=== PATIENT | female | born 1950 | race Caucasian/White ===

== ENCOUNTER 2019-05-23 17:44 | Emergency (ER) | payer OTHER, SELFPAY ==
--- NOTE | ~2019-05-23 | XR_ITS ---
[XR ribs LT 2V ] INDICATION: Left rib pain TECHNIQUE: Frontal projection of the upper left ribs, frontal projection of the lower left ribs, obli que projection of all the left ribs, frontal inspiratory chest x-ray for interpretation. FINDINGS: There are acute nondisplaced left fifth and sixth rib fractures. Left basilar atelectasis. No pneumothorax identified. Heart size normal. IMPRESSION: 1: Acute nondisplaced left fifth and sixth rib fractures. Reviewed, dictated and finalized at location A. STRINGER ASSEMBLER
--- NOTE | 2019-05-23 17:49 | PC.NURSE ---
PT CALLED BACK FOR EKG PER CUTTER AND PASTER PRESS CLIPPINGS, PT REFUSING EKG STATES SHE WAS DIAGNOSED WITH A PULLED MUSCLE.
--- NOTE | 2019-05-23 19:17 | PC.NURSE ---
called pt into triage bay, no response. another pt state i think thats the pt that just walked out. will try again in a few minutes.
[2019-05-23 19:33] VITALS: BP 145/118; PULSE 82; RESP 18; TEMP 36.9; O2SAT 97
--- NOTE | 2019-05-23 20:34 | ED.CHESTPAIN ---
HPI - Chest Pain General Chief Complaint: Chest Pain Stated Complaint: LEFT SIDE/CHEST PAIN Time Seen by Provider: 05/23/19 20:32 Source: patient and RN notes reviewed Mode of arrival: other Limitations: no limitations History of Present Illness HPI narrative: Pt is a 68 y/o female who presents to the ED with c/o 7/10 left sided rib pain that began a month ago, but has worsened today after reaching into her grandson's carseat. Pt was dx with RSV and pneumonia about a month ago. Pt believes that she pulled a muscle d/t her cough. Pt was seen in an ED on 04/29/19 for the same sx and was given Cyclobenzaprine 4 mg. She?s taken 3-4 pills since and has had no relief. Her sx are aggravated with movement and coughing. Pt notes that her sx are alleviated whenever she takes Vicodin. Pt reports near syncope d/t her pain, but denies a fever. complaint: other (rib pain) Onset (ago): month(s) (1) Timing of current episode: constant Pain location: other (left sided ribs) Severity: moderate Pain scale (0-10): 7 Relieving factors: medication-other (Vicodin) Exacerbating factors: movement and other (coughing) Context: recent illness Associated symptoms: syncope (near, d/t her pain) and cough Related Data Allergies Allergy/AdvReac Type Severity Reaction Status Date / Time No Known Allergies Allergy Verified 11/05/15 23:30 Review of Systems Review of Systems: All systems reviewed & are unremarkable except as noted in HPI and below Constitutional: Constitutional: Denies fever(s) Respiratory: Respiratory: Reports cough Musculoskeletal: Musculoskeletal: Reports other (left sided rib pain) Neurologic: Reports syncope (near, d/t her pain) PMFSH Past Medical History Medical History (Updated 05/24/19 @ 03:50 by Remington Ching MD) Depression Hyperthyroidism Pneumonia RSV (respiratory syncytial virus infection) Surgical History Surgical History (Updated 05/23/19 @ 20:36 by Waleska Serrano) Surgical history unknown Social History Social History (Updated 05/23/19 @ 20:36 by Waleska Serrano) Smoking status: Unknown if ever smoked Exam Const: General: healthy appearing and no acute distress Nutritional Appearance: well nourished HENMT: Mouth: Yes lip normal and Yes moist mucous membranes Eyes: Conjunctivae: conjunctivae normal Pupils: Equal, round and reactive pupils present Chest: Chest palpation & inspection: tenderness rib (left sided) Resp: Effort & Inspection: normal respiratory effort Back/Spine/Pelvis: Back: other (Full ROM) Skin: General skin exam: normal color, dry skin and other (warm) Neuro: General: patient oriented x3 and other (alert) Speech: normal speech Extrem: General: full ROM Psych: Mental Status: mental status grossly normal Affect: normal affect Course Vital Signs Vital signs: Vital Signs Temperature 36.9 C 05/23/19 19:33 Pulse Rate 82 05/23/19 19:33 Respiratory Rate 18 05/23/19 19:33 Blood Pressure 145/118 H 05/23/19 19:33 Pulse Oximetry 97 05/23/19 19:33 Temperature 36.7 C 05/23/19 21:19 Pulse Rate 80 05/23/19 21:19 Respiratory Rate 18 05/23/19 21:19 Blood Pressure 132/80 05/23/19 21:19 Pulse Oximetry 98 05/23/19 21:19 MDM - Chest Pain Differential Diagnosis Differential diagnosis: Likely fracture of rib Medical Records Data Attestation: I reviewed the patient's medical records. Imaging Data Attestation: I personally reviewed and interpreted this imaging study as follows: Radiologist's impression: ITS Impressions Ribs X-Ray 05/23/19 20:09 IMPRESSION: 1: Acute nondisplaced left fifth and sixth rib fractures. Discharge Plan Discharge Clinical Impression: Fracture of rib Patient Disposition: Home, Self-Care Condition: Stable Instructions: Rib Fracture (ED) Prescriptions: New hydrocodone-acetaminophen [[place]] 5-325 mg tablet 1 tablet PO Q6H PRN (Reason: pain) Qty: 14 RF: 0 Follow-up/
[2019-05-23 21:19] VITALS: BP 132/80; PULSE 80; RESP 18; TEMP 36.7; O2SAT 98
== END 2019-05-23 21:19 | disposition home or self-care (01) ==
PROVIDERS: Emergency Provider Emergency Medicine; PCP Emergency Medicine
DX: S22.42XA Multiple fractures of ribs, left side, initial encounter for closed fracture (principal); E05.90 Thyrotoxicosis, unspecified without thyrotoxic crisis or storm; X58.XXXA Exposure to other specified factors, initial encounter
CPT/HCPCS: 71100; 99283; A9270

== ENCOUNTER 2020-03-11 06:52 | Outpatient (NON) | payer OTHER, SELFPAY ==
[2020-03-11 21:00] LABS: SARS-CoV-2 RNA PCR Negative
== END 2020-03-11 06:53 ==
PROVIDERS: PCP Emergency Medicine; Visit Provider Internal Medicine
DX: J02.9 Acute pharyngitis, unspecified (principal); R09.81 Nasal congestion; Z20.828 Contact with and (suspected) exposure to other viral communicable diseases
CPT/HCPCS: 87635; C9803; U0003

== ENCOUNTER → 2021-07-13 10:21 | Outpatient (CLI) | payer OTHER, SELFPAY ==
--- NOTE | ~2021-07-13 | DEXA_ITS ---
Bone Density Report Name: KE TAMAYO Age: 70 Sex: Female Ethnicity: White Date of : 1950 Indication: osteopenia; height loss; postmenopausal Referring Provider: Marvin, Deepthi Bishop Study: Bone densitometry was performed. Exam Date: July 13, 2021 Accession number: [id number] Bone Density: Region BMD T-score Z-score Classification AP Spine (L1-L4) 0.998 -0.4 1.7 Normal Femoral Neck (Left) 0.695 -1.4 0.4 Osteopenia Total Hip (Left) 0.856 -0.7 0.8 Normal Femoral Neck (Right) 0.650 -1.8 0.0 Osteopenia Total Hip (Right) 0.839 -0.8 0.7 Normal Total Hip Mean 0.848 -0.8 0.8 Normal World Health Organization criteria for BMD impression classify patients as: Normal (T-score at or above -1.0), Osteopenia (T-score between -1.0 and -2.5), or Osteoporosis (T-score at or below -2.5). 10-year Fracture Risk(1): Major Osteoporotic Fracture 10% Hip Fracture 1.6% Reported Risk Factors: [place] (), Neck BMD=0.650, BMI=32.3 (1) FRAX(R) Version 3.08. Fracture probability calculated for an untreated patient. Fracture probability may be lower if the patient has received treatment. Previous Exams: Region Exam Age BMD T-score BMD Change BMD Change Date g/cm2 vs Baseline vs Previous AP Spine(L1-L4) 07/13/2021 70 0.998 -0.4 0.013 0.033* 02/28/2018 67 0.965 -0.7 -0.019 0.028* 02/10/2016 65 0.937 -1.0 -0.047* -0.047* 11/28/2010 59 0.984 -0.6 Total Hip(Left) 07/13/2021 70 0.856 -0.7 0.022 0.056* 02/28/2018 67 0.800 -1.2 -0.034* -0.006 02/10/2016 65 0.806 -1.1 -0.029* -0.029* 11/28/2010 59 0.834 -0.9 Total Hip(Right) 07/13/2021 70 0.839 -0.8 -0.014 -0.010 02/28/2018 67 0.849 -0.8 -0.004 0.056* 02/10/2016 65 0.793 -1.2 -0.060* -0.060* 11/28/2010 59 0.853 -0.7 *Denotes significance at 95% confidence level, LSC for AP Spine = 0.022 g/cm2, LSC for Total Hip = 0.027 g/cm2 Clinical Information Provided by Patient: Has used the following medications: Calcium Patient maximum height was 65.5 Menopause Age: 54 No regular weight bearing exercise Onset of menses at age 13 Number of children 1 Impression: The patient has low bone mass, based on the Right Femoral Neck T-score. The patient has an estimated ten-year risk of hip fracture of
== END ==
PROVIDERS: Visit Provider Internal Medicine
DX: M85.80 Other specified disorders of bone density and structure, unspecified site (principal); N95.9 Unspecified menopausal and perimenopausal disorder; M85.852 Other specified disorders of bone density and structure, left thigh; M85.851 Other specified disorders of bone density and structure, right thigh
CPT/HCPCS: 77080

== ENCOUNTER 2024-06-27 10:24 | Outpatient (CLI) | payer MEDICARE, SELFPAY ==
--- NOTE | ~2024-06-27 | DEXA_ITS ---
Bone Density Report Name: KE TAMAYO Age: 73 Sex: Female Ethnicity: White Date of : 1950 Indication: postmenopausal; screening for osteoporosis; parental hip fracture; height loss; Referring Provider: LAZARO, TAURUS Bishop Study: Bone densitometry was performed. Exam Date: June 27, 2024 Accession number: [id number] Bone Density: Region BMD T-score Z-score Classification AP Spine(L1-L4) 1.011 -0.3 2.0 Normal Femoral Neck (Left) 0.637 -1.9 0.1 Osteopenia Total Hip (Left) 0.828 -0.9 0.8 Normal Femoral Neck (Right) 0.692 -1.4 0.6 Osteopenia Total Hip (Right) 0.846 -0.8 0.9 Normal Total Hip Mean 0.837 -0.9 0.9 Normal World Health Organization criteria for BMD impression classify patients as: Normal (T-score at or above -1.0), Osteopenia (T-score between -1.0 and -2.5), or Osteoporosis (T-score at or below -2.5). 10-year Fracture Risk(1): Major Osteoporotic Fracture 19% Hip Fracture 8.1% Reported Risk Factors: [place] (), Neck BMD=0.637, BMI=31.9, parental fracture (1) FRAX(R) Version 3.08. Fracture probability calculated for an untreated patient. Fracture probability may be lower if the patient has received treatment. Clinical Information Provided by Patient: Parent has had a hip fracture Has used the following medications: Vitamin D, Calcium Has the following medical conditions: HYPOTHYROIDISM Patient maximum height was 66 Menopause Age: 55 No regular weight bearing exercise Onset of menses at age 13 Number of children 1 Impression: The patient has low bone mass, based on the Left Femoral Neck T-score. The patient has an estimated ten-year risk of hip fracture of 8.1% and an estimated ten-year risk of major fracture of 19%, based on the WHO FRAX algorithm. The patient has risk factors, including: parental hip fracture. Discussion: BONE DENSITY IS LOW AT ONE OR MORE SKELETAL SITES. THE PATIENT'S BMD AND CLINICAL RISK FACTORS CONTRIBUTE TO THIS PATIENT'S INCREASED RISK OF FRACTURE. This patient's lowest T-score is low at one or more skeletal sites. It meets the World Health Organization's (WHO) criteria for ?low bone mass? (T-score between -1.0 and -2.5). The patient's 10-year risk of hip fracture as calculated by FRAX exceeds the threshold where pharmacological therapy is recommended by the National Osteoporosis Foundation (NOF). However, all treatment decisions require clinical judgment and consideration of individual patient factors, including patient preferences, comorbidities, previous drug use, risk factors not captured in the FRAX model (e.g., frailty, falls, vitamin D deficiency, increased bone turnover, interval significant decline in bone density) and possible under or overestimation of fracture risk by FRAX. The patient should follow a healthful lifestyle (good nutrition with adequate calcium and vitamin D, and appropriate weight-bearing exercise). Follow-Up: Consider a repeat BMD and Vertebral Fracture Assessment (VFA) exam in 2 years or sooner if medically necessary, to reassess this patient's status. Reported by: ALISSON on 06/27/2024 11:03:00 AM. Reviewed, dictated and finalized at location AThony PADILLA
--- OUTSIDE RECORDS SUMMARY | 2024-06-27 11:19 | XMS_ITS | Clinical Summary ---
Author Organization [facility] Address [address] [place] [id number] Care Team Providers Care Public Relations Manager Name Role Phone Unavailable Primary Care Provider Unavailabl e Allergies Active Allergy Reactions Criticality Noted Date Comments Acetaminophen-Codeine Unknown 02/12/2018 Codeine Swelling,Dizziness,Vomiting 03/12/20 18 Morphine Unknown 02/15/2018 Medications Cholecalciferol (VITAMIN D3) 2000 units Tab Activ e Calcium Carbonate-Vitam in D (CALCIUM 500 + D OR) Take 1 tablet by mouth. 400 ui Vitamin D Active cyclobenzaprine 5 MG tablet 04/20/2019 Active LEVOTHYROXINE 100 MCG tabletIndicatio ns:Hypothyroidi sm TAKE ONE TABLET BY MOUTH EVERY MORNING 90 tablet 1 06/13/2019 Active sertraline 100 MG tabletIndicatio ns:Recurrent major depressive disorder, in partial remission (CMS/HCC) Take 1 tablet (100 mg total) by mouth daily. 30 tablet 04/22/2020 Active Active Problems Problem Noted Date Diagnosed Date Pain and swelling of right ankle 05/02/2019 Cough 05/02/2019 Abdominal cramps 05/02/2019 Influenza vaccination declined by patient 2019 Non compliance with medical treatment 05/02/2019 Sore throat 04/09/2019 Codeine adverse reaction 02/15/2018 Menopause present 02/11/2018 OCD (obsessive compulsive disorder) 02/11/2018 Osteoarthritis of right knee 06/06/2017 Knee pain, right 06/05/2017 Obesity (BMI 30.0-34.9) 01/30/2017 Depression 01/13/2016 Hypothyroidism 01/13/2016 Low vitamin D level 01/13/2016 Memory deficit 01/13/2016 Osteopenia 01/13/2016 Resolved Problems Problem Noted Date Diagnosed Date Resolved Date Immunization due 06/05/2017 01/02/2020 Encounter for preventive health examination 01/04/2016 01/02/2020 Family History Medical History Relation Comments Heart Disease Father Cancer Mother pancreatic Relation Status Comments Father Mother (Age 67) Social History Tobacco Use Types Packs/Day Years Used Date Smoking Tobacco: Never Smokeless Tobacco: Never Alcohol Use Standard Drinks/Week Comments No 0 (1 standard drink = 0.6 oz pur e alcohol) AUDIT-C Answer Date Recorded Frequency of Alcohol Consumption Never 04/09/2019 Average Number of Drinks Not on file 019 Frequency of Binge Drinking Not on file 03/23 PHQ-2 Answer Date Recorded PHQ-2 Score 6 04/28/2019 Comments No Sex and Gender Information Value Date Recorded Sex Assigned at Not on file Legal Sex Female 8:11 PM CDT Gender Identity Not on file Sexual Orientation Not on file Last Filed Vital Signs Vital Sign Reading Time Taken Comments Blood Pressure 141/78 04/28/2019 8:52 AM LEATHER SEASONER Pulse 75 04/28/2019 8:52 AM LEATHER SEASONER Temperature 36.3 C (97.3 F) 04/18/2019 8:50 AM LEATHER SEASONER Respiratory Rate 16 04/28/2019 8:52 AM LEATHER SEASONER Oxygen Saturation 97% 04/28/2019 8:52 AM LEATHER SEASONER Inhaled Oxygen Concentration - - Weight 82.6 kg (182 lb) 04/28/2019 8:52 AM LEATHER SEASONER Height 163.2 cm (5' 4.25 ) 04/28/2019 8:52 AM CS T Body Mass Index 31 04/28/2019 8:52 AM LEATHER SEASONER Plan of Treatment Health Maintenance Due Date Last Done Comments Colorectal Cancer Screening Colonoscopy (10 Years) 1950 Hepatitis C 1968 DTaP, Tdap and Td Vaccines ( 1 - Tdap) 1969 Mammogram Screening 1990 Zoster Vaccines (1 of 2) 2000 Annual Medicare Wellness Visit 01/01/2016 Pneumococcal Vaccine: 65+ Ye ars (1 of 1 - PCV) 01/01/2016 Dexa Scan (General) 02/28/2021 02/28/2018 COVID-19 Vaccine ( - 2023-2 5 season) 2023 Influenza Adult (#1) 2024 RSV Immunization or 60+ Years (1 - 1-dose 75+ series) 2025 Meningococcal B Vaccine Aged Out No l onger eligible based on patient's age to complete this topic Meningococcal Vaccine Aged Out No alisa karie eligible based on patient's age to complete this topic RSV Immunizations Under 20 Months Aged Out No longer eligible based on patient's age to complete this topic Procedures Procedure Name Priority Date/Time Associated Diagnosis Comments BONE DENSITY GENERIC (SCAN ORDER) Routine 02/28/2018 from Last 3 Months or Most Recently Relevant to Health Maintenance Results * BONE DENSITY (02/28/2018) Anatomical Region Laterality Modality Other us Documents Scanned SCANNING Final Result from Last 3 Months or Most Recently Relevant to Health Maintenance Insurance [employer]
--- OUTSIDE RECORDS SUMMARY | 2024-06-27 11:19 | XMS_ITS | Referral Summary ---
Author Organization [facility] Address [address] [place] [id number] Care Team Providers Care Port Traffic Manager Name Role Phone Deepthi Wong MD Primary Care Provider Allergies Active Allergy Reactions Criticality Noted Date Comments Acetaminophen-Codeine Unknown 02/12/2018 Amoxicillin Other (See comments) Low 08/02/2021 unsure Cefprozil Unknown 08/02/2021 Ciprofloxacin Unknown 12/14/2022 Codeine Dizziness,Swelling,Vomiting Medium 03/12/20 18 Levofloxacin Unknown 12/14/2022 Morphine Unknown 02/15/2018 Quinolones Other (See comments) Low 08/02/2021 unknown Benzonatate Unknown 08/02/2021 Medications cholecalciferol (VITAMIN D-3) 2000 unit tablet Take by mouth Active calcium carbonate-vitamin D3 1,250mg (500mg elemental) - 200 units per tablet Take 1 tablet by mouth Active ondansetron ODT (ZOFRAN-ODT) 8 mg disintegrating tablet Take 1 tablet (8 mg total) by mouth every 8 (eight) hours as needed for nausea or vomiting 20 tablet 2 Active levothyroxine (SYNTHROID) 88 mcg tablet Take 1 tablet (88 mcg total) by mouth daily 90 tablet 3 4 Active sertraline (ZOLOFT) 100 mg tablet Take 1 tablet (100 mg total) by mouth daily 90 tablet 3 4 Active Active Problems Problem Noted Date Diagnosed Date OCD (obsessive compulsive disorder) 02/11/2018 Depression 01/13/2016 Hypothyroidism 01/13/2016 Vitamin D deficiency 01/13/2016 Osteopenia 01/13/2016 Immunizations Immunization Administration Dates Next Due Influenza, Unspecified 01/21/2024(Deferr ed: Patient Refused),01/21/2024(Deferred: Patient Refused),01/22/2022(Deferred: Patient Refused),01/21/2021(Deferred: Patient Refused) Social History Tobacco Use Types Packs/Day Years Used Date Smoking Tobacco: Never Smokeless Tobacco: Never Alcohol Use Standard Drinks/Week Comments Not Currently 0 (1 standard drink = 0.6 oz pur e alcohol) AUDIT-C Answer Date Recorded Q1: How often do you have a drink containing alc ohol? Never 04/11/2021 Average Number of Drinks Not on file 021 Frequency of Binge Drinking Not on file 03/24 PHQ-2 Answer Date Recorded PHQ-2 Total Score (If total score is 3 or more points, staff should administer the PHQ-9) 1 01/21/2024 Personal Safety Answer Date Recorded Getting School Help Needed Not on file 04/20 Comments Unknown Sex and Gender Information Value Date Recorded Sex Assigned at Not on file Legal Sex Female 9:45 AM SALES DEVELOPMENT EXECUTIVE Gender Identity Not on file Sexual Orientation Not on file Last Filed Vital Signs Vital Sign Reading Time Taken Comments Blood Pressure 132/78 01/21/2024 3:27 PM CDT Pulse 72 01/21/2024 3:27 PM CDT Temperature 35.9 C (96.6 F) 01/21/2024 3:27 PM CDT Respiratory Rate 18 04/07/2020 1:03 PM SALES DEVELOPMENT EXECUTIVE Oxygen Saturation 96% 01/21/2024 3:27 PM CDT Inhaled Oxygen Concentration - - Weight 76.2 kg (168 lb) 01/21/2024 3:27 PM CDT Height 160 cm (5' 3 ) 01/21/2024 3:27 PM CDT Body Mass Index 29.76 01/21/2024 3:27 PM CDT Plan of Treatment Not on file Procedures Procedure Name Priority Date/Time Associated Diagnosis Comments DEXA AXIAL SKELETON BONE DENSITY 1 OR MORE SITES Schedule Routine, Read Routine (OP Routine) 07/13/2021 from Last 3 Months or Most Recently Relevant to Health Maintenance Results * Dexa Axial Skeleton Bone Density 1 or 2 Site (07/13/2021) Anatomical Region Laterality Modality Body N/A Radiographic Ne ging 07/13/2021 us Historical Provider MD SARABIA DXA PROCEDURES Final Result from Last 3 Months or Most Recently Relevant to Health Maintenance Insurance Care Teams Port Traffic Manager Relationship Specialty Start Date End Date Deepthi Wong MD PCP - General Internal Medicine 04/30/19
--- OUTSIDE RECORDS SUMMARY | 2024-06-27 11:19 | XMS_ITS | Clinical Summary ---
Author Organization [facility] Address [address] [place] [phone] Care Team Providers Care Duct Layer Supervisor Name Role Phone Deepthi Wong MD Primary [...] Refused),01/21/2024(Deferred: Patient Refused),01/22/2022(Deferred: Patient Refused),01/21/2021(Deferred: Patient Refused) Surgical History Surgery Date Site/Laterality Comments TONSILLECTOMY Medical History Medical History Date Comments Thyroid disease Family History Medical History Relation Name Comments Heart disease Father Skin cancer Father Pancreatic cancer Mother Relation Name Status Comments Father Alive Mother (Age 67) Paternal Half-Brother 1 Alive Paternal Half-Brother 2 Alive Paternal Half-Brother 3 Alive Paternal Half-Sister Alive Social History Tobacco Use Types Packs/Day Years [...] on file Legal Sex Female 9:45 AM 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 SPECIALIST Gender Identity Not on file Sexual Orientation Not on file Obstetrics History Last Filed Vital Signs Vital Sign Reading Time Taken Comments Blood Pressure 132/78 01/21/2024 3:27 PM CDT Pulse 72 01/21/2024 3:27 PM CDT Temperature 35.9 C (96.6 F) 01/21/2024 3:27 PM CDT Respiratory Rate 18 04/07/2020 1:03 PM 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 SPECIALIST Oxygen Saturation 96% 01/21/2024 3:27 PM CDT Inhaled Oxygen Concentration - - Weight 76.2 kg (168 lb) 01/21/2024 3:27 PM CDT Height 160 cm (5' 3 ) 01/21/2024 3:27 PM CDT Body Mass Index 29.76 01/21/2024 3:27 PM CDT Plan of Treatment Health Maintenance Due Date Last Done Comments Breast Cancer Screening-Mammogram 1950 Colon Cancer Screening-Colonoscopy 1950 Hepatitis C Screening 1950 DTaP/Tdap/Td Vaccine (1 - Tdap) 1961 Hepatitis B Screening 1968 Pneumococcal vaccine 65+ (1 of 1 - PCV) 2000 Zoster Vaccine (1 of 2) 2000 Osteoporosis Screening-Bone Density Scan 07/14/2023 07/13/2021 Influenza Vaccine (#1) 2024 Postp oned from 12/23/2023 (Patient declined, but will receive in the future) Depression Screening 01/20/2025 01/21/2024, 12/14/2022, 04/11/2021, Additional history exists Fall Risk Assessment 01/20/2025 01/21/2024, 12/14/2022, 04/11/2021, Additional history exists Well Visit 65+ 01/20/2025 01/21/2024, 11/22, 04/11/2021, Additional history exists Procedures Procedure Name Priority Date/Time Associated Diagnosis [...] Most Recently Relevant to Health Maintenance Insurance [facility] Member Subscriber Plan / Payer (Ef fective 2019-Present) Name:Kaitlyn Blair Relation to Subscriber:Self Name:Kaitlyn Blair Payer ID:[id number] (NAIC) Type:MEDICARE RISK OTHER Address: [place] [id number] [facility] Care Teams Duct Layer Supervisor Relationship Specialty Start Date End Date Deepthi Wong MD PCP - General Internal Medicine 04/30/19
== END 2024-06-27 10:25 | disposition home or self-care (01) ==
LOC: ANHIMG 10:26
PROVIDERS: PCP Internal Medicine; Visit Provider Internal Medicine
DX: Z78.0 Asymptomatic menopausal state (principal); M85.852 Other specified disorders of bone density and structure, left thigh; M85.851 Other specified disorders of bone density and structure, right thigh
CPT/HCPCS: 77080